=== PATIENT | male | born 1975 | race Two or more races ===

== ENCOUNTER 2017-03-23 08:54 | Emergency (ER) | payer MEDICAID ==
[~2017-03-23] VITALS: Ht 167.6 cm; Wt 90.7 kg
[2017-03-23 09:05] VITALS: BP 130/80
== END 2017-03-23 10:10 | disposition home or self-care (01) ==
LOC: ER 08:54
DX: S39.012A Strain of muscle, fascia and tendon of lower back, initial encounter (principal); X58.XXXA Exposure to other specified factors, initial encounter; Y93.89 Activity, other specified; Y92.89 Other specified places as the place of occurrence of the external cause; Y99.8 Other external cause status

== ENCOUNTER 2018-03-04 03:44 | Inpatient (IN) | payer MEDICAID ==
[~2018-03-04] VITALS: Ht 172.7 cm; Wt 97.0 kg
[2018-03-04] MEDS ORDERED: SODIUM CHLORIDE 0.9% 1,000 ML IV ONE ×2 (06:48)
[2018-03-04] MEDS ORDERED: CLINDAMYCIN 900MG IV 50 ML IV ONE (07:00)
[2018-03-04] MEDS ORDERED: cefTRIAXone 1GM/10ml IVPUSH 10 ML IV ONE (07:00)
[2018-03-04 07:30] LABS: Urine Bacteria NONE SEEN /hpf (None Seen); Urine Blood Negative /uL (Negative); Urine Specific Gravity 1.005 (1.001-1.035); Urine WBC None Seen /hpf (0 - 3)
[2018-03-04 07:31] LABS: Albumin 3.4 g/dL (3.4-5.0); BUN/Creatinine Ratio 19.5; Calcium 7.9 mg/dL (8.5-10.1)
[2018-03-04 07:33] LABS: Bilirubin, Total 0.6 mg/dL (0.2-1.0); Total Protein 7.1 g/dL (6.4-8.2)
[2018-03-04 07:33] LABS: INR 0.9 (0.9-1.15); Partial Thromboplastin Time 26.4 sec (23.78-33.04); Prothrombin Time 9.7 sec (9.27-12.13)
[2018-03-04 07:42] LABS: Basophils # (auto) 0 uL; Basophils % (auto) 0.6 % (0.0-2.0); Eosinophils # (auto) 0.1 uL; Eosinophils % (auto) 1.1 % (0.0-7.0); Hematocrit 41.2 % (41.0-53.0); Hemoglobin 14.6 g/dL (13.5-17.5); Lymphocytes # (auto) 1.5 uL; Lymphocytes % (auto) 27.8 % (10.0-50.0); Mean Corpuscular Hemoglobin 30.3 pg (28.0-32.0); Mean Corpuscular Hgb Conc. 35.4 g/dL (32.0-36.0); Mean Corpuscular Volume 85.7 fL (80.0-100.0); Monocytes # (auto) 0.3 uL; Neutrophils # (auto) 3.5 uL; Neutrophils % (auto) 64.5 % (37.0-80.0); Nucleated Red Blood Cells % 0.2 %; Platelet Count (auto) 116 10^3/uL (140-450); White Blood Cell 5.4 10^3/uL (4.4-10.8)
[2018-03-04] MEDS ORDERED: VANCOMYCIN PER PHARMACY 0 MG IV SCH (09:00)
[2018-03-04] MEDS ORDERED: LACTULOSE 20Gm/30ML SOLN PO PRN (09:00)
[2018-03-04] MEDS ORDERED: MORPHINE SULFATE 8mg/ml INJ SDV IV PRN (09:00)
[2018-03-04] MEDS ORDERED: PROMETHAZINE HCL 25 MG/ML 1ML IV PRN (09:00)
[2018-03-04] MEDS ORDERED: IBUPROFEN 400 MG TAB PO PRN (09:00)
[2018-03-04] MEDS ORDERED: ACETAMINOPHEN 500 MG TAB PO PRN (09:00)
[2018-03-04] MEDS ORDERED: KETOROLAC TROMETH 30 MG/ML 1ML VIAL IV PRN (09:00)
[2018-03-04] MEDS ORDERED: NITROGLYCERIN 0.4 MG SL TAB SL PRN (09:00)
[2018-03-04] MEDS ORDERED: VANCOMYCIN 1GM/250ML 250 ML IV ONE (09:00)
[2018-03-04] MEDS ORDERED: PIPERACILLIN-TAZOB 3.375GM 100 ML IV ONE (09:00)
[2018-03-04] MEDS: SODIUM CHLORIDE 0.9% 1,000 ML IV SCH ×2 (09:35→18:57)
[2018-03-04] MEDS: ENOXAPARIN SOD 60 MG/0.6 ML SYRINGE SC SCH (09:55)
[2018-03-04] MEDS: VANCOMYCIN 1,250 MG in D5W 5% 250 ML IV SCH (13:44)
[2018-03-04] MEDS: PIPERACILLIN-TAZOB 3.375GM 100 ML IV SCH ×2 (16:58→22:14)
[2018-03-04 17:18] VITALS: BP 131/67
[2018-03-04 17:19] VITALS: BP 131/67
[2018-03-04 22:00] VITALS: BP 126/81
[2018-03-05] MEDS: VANCOMYCIN 1,250 MG in D5W 5% 250 ML IV SCH ×2 (01:35→14:31)
[2018-03-05] MEDS: PIPERACILLIN-TAZOB 3.375GM 100 ML IV SCH ×4 (04:19→22:13)
[2018-03-05] MEDS: SODIUM CHLORIDE 0.9% 1,000 ML IV SCH ×2 (04:24→14:57)
[2018-03-05 05:00] VITALS: BP 130/77
[2018-03-05 09:00] VITALS: BP 130/90
[2018-03-05] MEDS: ENOXAPARIN SOD 60 MG/0.6 ML SYRINGE SC SCH (09:48)
[2018-03-05 13:00] VITALS: BP 126/69
[2018-03-05 17:27] VITALS: BP 114/87
[2018-03-06] MEDS: VANCOMYCIN 1,250 MG in D5W 5% 250 ML IV SCH ×2 (02:21→14:00)
[2018-03-06] MEDS: SODIUM CHLORIDE 0.9% 1,000 ML IV SCH ×2 (02:22→10:57)
[2018-03-06] MEDS: PIPERACILLIN-TAZOB 3.375GM 100 ML IV SCH ×2 (04:20→10:00)
[2018-03-06 05:00] VITALS: BP 118/75
[2018-03-06 06:28] LABS: Potassium 3.9 mmol/L (3.5-5.1)
[2018-03-06 06:37] LABS: Albumin 3.4 g/dL (3.4-5.0); BUN/Creatinine Ratio 16.5; Calcium 8.5 mg/dL (8.5-10.1)
[2018-03-06 06:52] LABS: Bilirubin, Total 0.9 mg/dL (0.2-1.0); Total Protein 7.1 g/dL (6.4-8.2)
[2018-03-06 09:00] VITALS: BP 134/82
[2018-03-06] MEDS: ENOXAPARIN SOD 60 MG/0.6 ML SYRINGE SC SCH (10:00)
[2018-03-06 13:00] VITALS: BP 130/70
== END 2018-03-06 14:48 | disposition home or self-care (01) | DRG 384 ==
LOC: ER 04:03 → TELE 04:04 → TELE-CENTR 14:59
PROVIDERS: ADMIT Internal Medicine; ATTEND Internal Medicine Pulmonary Disease
DX: S80.811A Abrasion, right lower leg, initial encounter (principal); L03.115 Cellulitis of right lower limb; E66.9 Obesity, unspecified; W01.0XXA Fall on same level from slipping, tripping and stumbling without subsequent striking against object, initial encounter; Y93.01 Activity, walking, marching and hiking; Y92.828 Other wilderness area as the place of occurrence of the external cause; Z80.3 Family history of malignant neoplasm of breast; Y99.8 Other external cause status; Z68.32 Body mass index [BMI] 32.0-32.9, adult
CPT/HCPCS: 36415; 71045; 73700; 80053; 80202; 81001; 83605; 85025; 85610; 85652; 85730; 87040; 93971; 96365; 96366; 96372; 96375; J2543; J3490; J7060